=== PATIENT | female | born 1985 | race Caucasian/White ===

== ENCOUNTER 2017-07-18 13:57 | Emergency (ER) | payer BC, MEDICAID ==
[2017-07-18 14:05] VITALS: TEMP 97.6
[2017-07-18] MEDS ORDERED: ONDANSETRON HCL 4 MG TAB PO PRN (14:19)
[2017-07-18] MEDS ORDERED: CYCLOBENZAPRINE 10 MG TAB PO ONE (14:19)
[2017-07-18] MEDS ORDERED: ONDANSETRON HCL 4 MG TAB ONE (14:22)
[2017-07-18] MEDS ORDERED: CYCLOBENZAPRINE 10 MG TAB ONE (14:22)
[2017-07-18 14:28] VITALS: O2SAT 100
[2017-07-18 15:00] VITALS: RESP 20
[2017-07-18] MEDS ORDERED: APAP/CODEINE 300/30 TAB PO ONE (15:03)
[2017-07-18] MEDS ORDERED: APAP/CODEINE 300/30 TAB ONE (15:11)
[2017-07-18 15:42] VITALS: BP 133/84; PULSE 58
== END 2017-07-18 16:02 | disposition home or self-care (01) | DRG 103 ==
LOC: ED 13:57
DX: G43.509 Persistent migraine aura without cerebral infarction, not intractable, without status migrainosus (principal)
CPT/HCPCS: 99283